=== PATIENT | female | born 1940 | race Caucasian/White ===

== ENCOUNTER 2022-01-01 09:18 | Outpatient (CLI) | payer MEDICARE, SELFPAY ==
--- NOTE | 2022-01-01 10:00 | CRLHL7_ITS ---
For Patients: As a result of the Century Cures Act, medical imaging exams and procedure reports are released immediately into your electronic medical record. You may view this report before your referring provider. If you have questions, please contact your health care provider. Indication: FOLLOW UP SPLENIC LACERATION Technique: Postcontrast CT abdomen and pelvis. 65 cc Isovue 370 intravenous contrast. Please note that all CT scans at this facility use dose modulation, iterative reconstruction, and/or weight-based dosing when appropriate to reduce radiation dose to as low as reasonably achievable. Comparison: November 03, 2021 Findings: There is now a left pleural effusion with compressive atelectasis involving the left lower lobe. Chronic scarring within the right lower lobe and right middle lobe. No basilar pneumothorax. A trace right pleural effusion is present. There is cardiomegaly without pericardial effusion. Vascular calcifications are present. There is no intrahepatic mass. Stable calcification associated with the dome of the liver. Adrenal glands are normal. Normal kidneys without hydronephrosis or perinephric stranding. Postprocedural changes of embolization noted. There is a subcapsular fluid collection about the lateral aspect of the spleen measuring 11.5 x 7.2 cm. This results in mass effect upon the splenic parenchyma. The pancreas is normal. Dense vascular calcifications in the aorta without aneurysm. No adenopathy. Bladder normal. Right inguinal hernia containing fat is again noted. Resolution of previously noted pelvic free fluid. Old left proximal femoral fracture deformity. Severe multilevel degenerative changes. Impression: Status post splenic artery embolization with development of a subcapsular fluid collection about the spleen measuring 11.5 cm. Resolution of previously noted free fluid. Development of left pleural effusion with compressive left lower lobe atelectasis. Trace right pleural effusion also present. Please note that all CT scans at this facility use dose modulation, iterative reconstruction, and/or weight-based dosing when appropriate to reduce radiation dose to as low as reasonably achievable. Dictated by George Schmitz MD @ 01/01/2022 11:32:59 AM (Electronically Signed)
[2022-01-01 10:02] LABS: Creatinine* 0.8 mg/dL (0.5-1.5); Estimated Glomerular Filt Rate 74 ml/min
== END 2022-01-01 09:19 | disposition home or self-care (01) ==
LOC: CT 09:18
PROVIDERS: PCP Physician Assistant Medical; Visit Provider Surgery
DX: S36.039A Unspecified laceration of spleen, initial encounter (principal); J90 Pleural effusion, not elsewhere classified
CPT/HCPCS: 36415; 74177; 82565; Q9967

== ENCOUNTER 2022-01-25 14:36 | Outpatient (CLI) | payer MEDICARE, SELFPAY ==
[2022-01-25 15:08] VITALS: BP 194/110; PULSE 78; RESP 16; O2SAT 97
[2022-01-25 15:27] VITALS: BP 167/90; PULSE 75; RESP 16; O2SAT 97
--- NOTE | 2022-01-25 15:30 | CRLHL7_ITS ---
For Patients: As a result of the Cures Act, medical imaging exams and procedure reports are released immediately into your electronic medical record. You may view this report before your referring provider. If you have questions, please contact your health care provider. INDICATION: Post thoracentesis. TECHNIQUE: Chest 1 views. COMPARISON: Chest x-ray from 02/05/2014. FINDINGS: Lungs: Clear lungs. No consolidation. Pleura: Small left pleural effusion. No pneumothorax. Heart and Mediastinum: The cardiomediastinal silhouette is obscured. The vessels are unremarkable. Bones: Unremarkable. IMPRESSION: Small left pleural effusion. No pneumothorax. Dictated by Jose Francisco Connors MD @ 01/25/2022 4:24:51 PM (Electronically Signed)
--- NOTE | 2022-01-25 15:33 | P.PCN_ITS ---
Procedure Note Date Seen: 01/25/22 Will [facility] bill your pro fee for this procedure?: Yes Pre-op diagnosis: Pleural effusion, left chest Post-op diagnosis: same Procedure: Thoracentesis, left chest Procedure Description: After discussion of the risks and benefits the patient was placed in a seated position leaning over a table. Ultrasound guidance was used to identify the effusion. Once this was done the site was marked. The area was prepped and draped in the usual sterile fashion. Local anesthetic was used to anesthetize the skin and subcutaneous tissue down to the rib. Once the rib was encountered, the needle was advanced over the top of the rib into the pleural space. This was confirmed by the aspiration of serous fluid. A skin sebastien was made with an 11 blade. The thoracentesis catheter was advanced into the pleural cavity while aspirating. Once the pleural fluid was aspirated confirming entrance into the chest cavity, the needle was removed and the sheath advanced. 700 mL of fluid were then aspirated. At the end of the procedure, the patient had some mild coughing. Specimens were sent for cytology. The ultrasound was used to confirm successful aspiration evidence by no further remaining fluid. The catheter was then removed, and an occlusive dressing was placed over the skin site. Patient tolerated the procedure well. Estimated blood loss 1 mL Postprocedure chest x-ray revealed no pneumothorax. Anesthesia: local Surgeon: Yudi Camarillo MD Estimated blood loss (mL): 1 Pathology: specimen obtained, sent to pathology Disposition: same day
[2022-01-25 18:24] LABS: BF Total Volume* 700
[2022-01-25 18:25] LABS: BF Clarity* Slightly Cloudy; BF Color Xanthochromic; pH Body Fluid* 8.5
[2022-01-25 18:44] LABS: Mononuclear WBC Body Fluid* 99 %; Polynuclear WBC Body Fluid* 1 %; RBC, Body Fluid* 0.003 10^6/uL; WBC, Body Fluid* 1.524 10^3/uL
[2022-01-25 18:52] LABS: Amylase Body Fluid* 33 U/L; Body Fluid Total Protein* 5.4 gm/dL; Cholesterol Body Fluid* 79 mg/dL; Glucose Body Fluid* 116 mg/dL
[2022-01-25 19:43] LABS: LDH Body Fluid* 521 U/L
== END 2022-01-25 16:10 | disposition home or self-care (01) ==
LOC: US 15:00 → OP CLINIC 15:02
PROVIDERS: Surgery; PCP Physician Assistant Medical; Visit Provider Surgery
DX: J90 Pleural effusion, not elsewhere classified (principal)
CPT/HCPCS: 32555; 71045; 76942; 82150; 82945; 83615; 83986; 84157; 84311; 87070; 87102; 87205; 88112; 88305; 89051

== ENCOUNTER 2022-03-08 12:42 | Outpatient (CLI) | payer MEDICARE, SELFPAY | END 2022-03-08 12:43 | disposition home or self-care (01) | LOC: RAD 12:43 | PROVIDERS: PCP Physician Assistant Medical; Visit Provider Internal Medicine | DX: I21.4 Non-ST elevation (NSTEMI) myocardial infarction (principal) | CPT/HCPCS: 93306 ==

== ENCOUNTER 2022-05-10 14:16 | Outpatient (CLI) | payer MEDICARE, SELFPAY ==
[2022-05-10 14:18] LABS: Chloride* 102 mmol/L (96-114)
[2022-05-10 14:19] LABS: Albumin* 4.6 g/dL (3.3-5.0); Potassium* 4.4 mmol/L (3.6-5.1); Sodium* 140 mmol/L (135-149)
[2022-05-10 14:22] LABS: Alanine Aminotransferase* 31 U/L (4-35); Alkaline Phosphatase* 84 U/L (40-150); Aspartate Amino Transferase* 34 U/L (12-35); Bilirubin Total* 0.4 mg/dL (0.1-1.5); Blood Urea Nitrogen* 17 mg/dL (7-30); Calcium* 9.4 mg/dL (8.4-10.6); Carbon Dioxide* 30 mmol/L (20-32); Creatinine* 0.8 mg/dL (0.5-1.5); Estimated Glomerular Filt Rate 73 ml/min; Glucose* 109 mg/dL (60-115)
== END 2022-05-10 14:17 | disposition home or self-care (01) ==
PROVIDERS: PCP Physician Assistant Medical; Visit Provider Physician Assistant Medical
DX: I10 Essential (primary) hypertension (principal); E78.5 Hyperlipidemia, unspecified
CPT/HCPCS: 80053

== ENCOUNTER 2022-05-26 12:44 | Outpatient (CLI) | payer MEDICARE, SELFPAY ==
--- NOTE | 2022-05-26 13:00 | CRLHL7_ITS ---
For Patients: As a result of the Century Cures Act, medical imaging exams and procedure reports are released immediately into your electronic medical record. You may view this report before your referring provider. If you have questions, please contact your health care provider. DXA BONE MINERAL DENSITY STUDY Current height (in): 65.0. Weight (lb): 136.0. Menopause age: 49. Ethnicity: White. Reason for exam: Screening. 1. Have you had a previous hip or vertebral fracture? Yes. 2. Have you had any fractures during your adult life which did not result from significant trauma (e.g., auto accident)? Yes. 3. Did either of your parents have a hip fracture? No. 4. Do you smoke? No. 5. Have you ever taken Glucocorticoids? No. 6. Do you have rheumatoid arthritis? Yes. 7. Do you have secondary osteoporosis? No. 8. Do you drink 3 or more alcoholic drinks per day? No. 9. Are you being treated for osteoporosis? No. 10. Have you ever taken any of the following medications: Actonel, Evista, Fosamax, Miacalcin, Reclast, Boniva, Forteo, HRT (i.e. estrogen/hormone therapy), Protelos, Prolia, Vitamin D, Calcium, other ??? please specify. ANSWER: Yes, Fosamax, calcium. 11. Do you have any of the following medical conditions: Anorexia or bulimia, asthma or emphysema, end stage renal disease, hyperparathyroidism, any seizure disorders, cancer, inflammatory bowel diseases, hysterectomy, other ??? please specify. ANSWER: No. 12. What was your maximum height (inches)? 66. 13. Do you perform weight bearing exercise regularly? Yes. 14. Do you regularly consume dairy products? Yes. 15. Do you drink caffeinated beverages? No. If female: 16. At what age did your period start? 13. 17. Are you premenopausal? No. 18. How many full term pregnancies have you had? 4. 19. Have you ever missed your period for more than 6 months in a row (not including or menopause)? No. TECHNIQUE: Bone mineral density study was performed using the [employer]. FINDINGS: The results of the study expressed as bone mineral density (BMD) are as follows: Lumbar spine L1 to L2: BMD: 1.190 g/cm2. T-score: 1.9. Z-score: 4.5. Neck Left: BMD: 0.748 g/cm2. T-score: -0.9. Z-score: 1.5. Right: BMD: 0.563 g/cm2. T-score: -2.6. Z-score: -0.1. Total Left: BMD: 0.770 g/cm2. T-score: -1.4. Z-score: 0.8. Right: BMD: 0.670 g/cm2. T-score: -2.2. Z-score: 0.0. IMPRESSION: Osteoporosis. COMPARISON: Compared with scan of 05/22/2020, the bone mineral density has increased by 10.0 percent at the spine and decreased by 1.9 percent at the hip. George Schmitz M.D. Diagnostic Radiologist [email or web address] Transcribed: 3:01 pm DW/Dictated by: George Schmitz MD @ 05/26/2022 1:56:00 PM (Electronically Signed)
== END 2022-05-26 12:45 | disposition home or self-care (01) ==
LOC: RAD 12:45
PROVIDERS: PCP Physician Assistant Medical; Visit Provider Physician Assistant Medical
DX: Z13.820 Encounter for screening for osteoporosis (principal); M81.0 Age-related osteoporosis without current pathological fracture; Z78.0 Asymptomatic menopausal state
CPT/HCPCS: 77080

== ENCOUNTER 2022-06-18 09:58 | Outpatient (CLI) | payer MEDICARE, SELFPAY ==
--- NOTE | 2022-06-18 10:15 | CRLHL7_ITS ---
For Patients: As a result of the Century Cures Act, medical imaging exams and procedure reports are released immediately into your electronic medical record. You may view this report before your referring provider. If you have questions, please contact your health care provider. BILATERAL SCREENING MAMMOGRAM WITH COMPUTER-AIDED DETECTION TECHNIQUE: CC and MLO views were obtained. These mammographic images have been obtained using full-field digital technique. These mammographic images were interpreted with the benefit of computer-aided detection. COMPARISON FILM: 05/26/21, 05/22/20, 05/14/19. FINDINGS: The breasts are heterogeneously dense, which may obscure small masses IMPRESSION: There is no radiographic evidence for malignancy. ASSESSMENT: BI-RADS Category 1: Negative RECOMMENDATION: Routine screening mammogram in 1 year. A lay language report of this examination will be provided to the patient. George Schmitz M.D. Diagnostic Radiologist [email or web address] / be/Dictated by: George Schmitz MD @ 06/18/2022 11:24:00 AM (Electronically Signed)
== END 2022-06-18 09:59 | disposition home or self-care (01) ==
LOC: MAMMO 09:59
PROVIDERS: PCP Physician Assistant Medical; Visit Provider Physician Assistant Medical
DX: Z12.31 Encounter for screening mammogram for malignant neoplasm of breast (principal); R92.2 Inconclusive mammogram
CPT/HCPCS: 77067

== ENCOUNTER 2023-01-17 06:20 | Day surgery (SDC) | payer MEDICARE, SELFPAY ==
[2023-01-17] VITALS (7 sets, daily range): BP systolic 131–158; BP diastolic 69–76; PULSE 61–68; RESP 14–16; TEMP 36.6–36.7; O2SAT 95–99; BMI 22.9
[2023-01-17] MEDS: BUPIVACAINE 0.5 %/EPI 1:200K INJECTION (07:10)
[2023-01-17] MEDS: ETHYL CHLORIDE 1 APPLICATION 1 APPLIC TOPICAL (07:10)
[2023-01-17] MEDS: LIDOCAINE 1 % PF 30 ML INJECTION (07:10)
--- NOTE | 2023-01-17 07:41 | P.ORPRC_ITS ---
Procedure Note Date of procedure: 01/17/23 Procedure: PREOPERATIVE DIAGNOSIS: 1. Right carpal tunnel syndrome POSTOPERATIVE DIAGNOSIS: 1. Right carpal tunnel syndrome PROCEDURE: 1. Right open carpal tunnel release SURGEON: Frantz Aquino MD. CENTRAL OFFICE TECHNICIAN: AWA Solomon ANESTHESIA: Local anesthetic (50:50 mixture of 1% lidocaine plain and 0.5% marcaine with epi) - 10ml total IMPLANTS: None EBL: 2 mL TOURNIQUET: None COMPLICATIONS: None evident INDICATIONS: The patient is a pleasant 82-year-old female who has experienced right hand numbess/tingling affecting the radial 3.5 digits for multiple months. It has progressively gotten worse. Nonoperative management has been tried and failed, and therefore surgery was recommended. DESCRIPTION OF PROCEDURE: Following a thorough discussion of risks, benefits, and alternatives consent was obtained and the operative extremity was marked. The patient was brought to the operating room and placed supine on the operating table. Local anesthesia induction was undertaken in preop holding. No antibiotics were administered as this was planned to be a local case only. Proper time-out was performed identifying proper patient, site, and procedure. The operative extremity was prepped and draped in the appropriate sterile fashion using ChloraPrep. An incision was made in line with the radial border of the ring finger beginning 1 cm distal to the distal wrist crease and progressing for another 2.5cm distal. Caution was taken to stay proximal to De Souza's cardinal line. Sharp incision through the skin, subcutaneous tissue, and palmar fascia was performed. The thenar musculature was bluntly elevated off the transverse carpal ligament. The ligament was directly visualized, and divided sharply with a 15 blade. This was released from its most proximal to the most distal extent. Metzenbaum scissor was also utilized to release the fascia extension proximally. We confirmed complete release of the transverse carpal ligament. Closure was performed with 4-O nylon in interrupted fashion. Soft dressings were applied, and the patient was transferred to the recovery room in stable condition. 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 Dissection through transverse carpal ligament identified the median nerve to be rest in more radial than is typical. We identified the nerve, view to through the extent of the carpal tunnel, and protected throughout the case. PLAN: 1. Encourage elevation of the operative extremity. 2. Range of motion of the fingers and hand/wrist as tolerated. 3. Ibuprofen/acetaminophen and/or Percocet as needed for pain control. 4. Follow up with PA visit or nurse visit in 12-16 days for wound check and suture removal.
[2023-01-17] MEDS: NEOMYCIN/BACITRACIN/POLYMYXIN B 1 APPLIC TOPICAL (07:47)
--- NOTE | 2023-01-17 07:52 | SUR.PREOP ---
SAME DAY SURGERY LOCAL INJECTION SITE VERIFICATION WAS PERFORMED BY SURGEON/PA AND PATIENT PRIOR TO LOCAL ANESTHETIC BEING INJECTED TO OPERATIVE SITE.
== END 2023-01-17 08:12 | disposition home or self-care (01) ==
PROVIDERS: PCP Physician Assistant Medical; Visit Provider Orthopaedic Surgery Sports Medicine
PROC: (CPT 64721; principal; 2023-01-17 07:30)
DX: G56.01 Carpal tunnel syndrome, right upper limb (principal)
CPT/HCPCS: 64721; J2001; J3490

== ENCOUNTER 2023-06-09 07:57 | Outpatient (CLI) | payer MEDICARE, SELFPAY | END 2023-06-09 07:58 | disposition home or self-care (01) | LOC: NFLDREF 06-10 08:12 | PROVIDERS: PCP Physician Assistant Medical; Referring Provider Physician Assistant Medical; Visit Provider Physician Assistant Medical | DX: Z00.00 Encounter for general adult medical examination without abnormal findings (principal); D64.9 Anemia, unspecified; E78.5 Hyperlipidemia, unspecified; E87.1 Hypo-osmolality and hyponatremia; I10 Essential (primary) hypertension | CPT/HCPCS: 80053; 80061; 84443 ==

== ENCOUNTER 2023-07-04 13:14 | Outpatient (CLI) | payer MEDICARE, SELFPAY ==
--- NOTE | 2023-07-04 13:40 | CRLHL7_ITS ---
For Patients: As a result of the Century Cures Act, medical imaging exams and procedure reports are released immediately into your electronic medical record. You may view this report before your referring provider. If you have questions, please contact your health care provider. BILATERAL SCREENING MAMMOGRAM WITH COMPUTER-AIDED DETECTION TECHNIQUE: CC and MLO views were obtained. These mammographic images have been obtained using full-field digital technique. These mammographic images were interpreted with the benefit of computer-aided detection. COMPARISON FILM: 06/18/22, 05/26/21, 05/22/20. FINDINGS: The breasts are heterogeneously dense, which may obscure small masses IMPRESSION: There is no radiographic evidence for malignancy. ASSESSMENT: BI-RADS Category 1: Negative RECOMMENDATION: Routine screening mammogram in 1 year. A lay language report of this examination will be provided to the patient. George Schmitz M.D. Diagnostic Radiologist [email or web address] / be/Dictated by: George Schmitz MD @ 07/05/2023 8:41:00 AM (Electronically Signed)
== END 2023-07-04 13:15 | disposition home or self-care (01) ==
LOC: MAMMO 13:14
PROVIDERS: PCP Physician Assistant Medical; Visit Provider Physician Assistant Medical
DX: Z12.31 Encounter for screening mammogram for malignant neoplasm of breast (principal); R92.2 Inconclusive mammogram
CPT/HCPCS: 77067

== ENCOUNTER 2024-06-15 09:11 | Outpatient (CLI) | payer MEDICARE, SELFPAY | END 2024-06-15 09:12 | disposition home or self-care (01) | LOC: NFLDREF 14:45 | PROVIDERS: PCP Physician Assistant Medical; Referring Provider Physician Assistant Medical; Visit Provider Physician Assistant Medical | DX: I10 Essential (primary) hypertension (principal); E78.2 Mixed hyperlipidemia; M85.80 Other specified disorders of bone density and structure, unspecified site; E55.9 Vitamin D deficiency, unspecified | CPT/HCPCS: 80053; 80061; 82306; 84443 ==

== ENCOUNTER 2024-07-05 13:16 | Outpatient (CLI) | payer MEDICARE, SELFPAY ==
--- NOTE | 2024-07-05 13:40 | CRLHL7_ITS ---
For Patients: As a result of the Century Cures Act, medical imaging exams and procedure reports are released immediately into your electronic medical record. You may view this report before your referring provider. If you have questions, please contact your health care provider. BILATERAL SCREENING MAMMOGRAM WITH COMPUTER-AIDED DETECTION AND TOMOSYNTHESIS TECHNIQUE: CC and MLO views were obtained. These mammographic images have been obtained using full-field digital technique. These mammographic images were interpreted with the benefit of computer-aided detection. Breast Tomosynthesis was used in this interpretation. COMPARISON FILM: 07/04/23, 06/18/22, 05/26/21. FINDINGS: There are scattered areas of fibroglandular density. IMPRESSION: There is no radiographic evidence for malignancy. ASSESSMENT: BI-RADS Category 1: Negative RECOMMENDATION: Routine screening mammogram in 1 year. A lay language report of this examination will be provided to the patient. George Schmitz M.D. Diagnostic Radiologist [email or web address] SP/Dictated by: George Schmitz MD @ 07/09/2024 9:48:00 AM (Electronically Signed)
--- NOTE | 2024-07-05 14:30 | CRLHL7_ITS ---
For Patients: As a result of the Century Cures Act, medical imaging exams and procedure reports are released immediately into your electronic medical record. You may view this report before your referring provider. If you have questions, please contact your health care provider. XR DXA Bone Mineral Density (BMD) Reason for exam: Osteoporosis. Current height (in): 65. Weight (lb): 136. Menopause age: 49. Ethnicity: White. 1. Have you had a previous hip or vertebral fracture? Yes. 2. Have you had any fractures during your adult life which did not result from significant trauma (e.g., auto accident)? Yes. 3. Did either of your parents have a hip fracture? No. 4. Do you smoke? No. 5. Have you ever taken Glucocorticoids? No. 6. Do you have rheumatoid arthritis? No. 7. Do you have secondary osteoporosis? Yes. 8. Do you drink 3 or more alcoholic drinks per day? No. 9. Are you being treated for osteoporosis? No. 10. Have you ever taken any of the following medications: Actonel, Evista, Fosamax, Miacalcin, Reclast, Boniva, Forteo, HRT (i.e., estrogen/hormone therapy), Protelos, Prolia, Vitamin D, Calcium, other ??? please specify. ANSWER: Yes, Fosamax (i.e., alendronate), vitamin D, and calcium. 11. Do you have any of the following medical conditions: Anorexia or bulimia, asthma or emphysema, end stage renal disease, hyperparathyroidism, any seizure disorders, cancer, inflammatory bowel diseases, hysterectomy, other ??? please specify. ANSWER: No. 12. What was your maximum height (inches)? 66. 13. Do you perform weight bearing exercise regularly? Yes. 14. Do you regularly consume dairy products? Yes. 15. Do you drink caffeinated beverages? Yes. 16. At what age did your period start? 12. 17. Are you premenopausal? No. 18. How many full-term pregnancies have you had? 4. 19. Have you ever missed your period for more than 6 months in a row (not including or menopause)? No. TECHNIQUE: Bone mineral density study was performed using the [employer]. FINDINGS: The results of the study expressed as bone mineral density (BMD) are as follows: Lumbar spine L1 to L2: BMD: 1.149 g/cm2. T-score: 1.5. Z-score: 4.2 Neck Left: BMD: 0.762 g/cm2. T-score: -0.8. Z-score: 1.7 Right: BMD: 0.584 g/cm2. T-score: -2.4. Z-score: 0.1 Total Left: BMD: 0.799 g/cm2. T-score: -1.2. Z-score: 1.2 Right: BMD: 0.709 g/cm2. T-score: -1.9. Z-score: 0.4 IMPRESSION: Osteopenia. *Comparison exams done prior to 11/2019 were performed on different unit, [employer]. COMPARISON: Compared with scan of 05/26/2022, the bone mineral density has decreased by 3.5 percent at the spine and increased by 4.7 percent at the hip. Compared with scan of 05/22/2020, the bone mineral density has increased by 10.0 percent at the spine and decreased by 1.9 percent at the hip. Magdalene Galarza M.D. Diagnostic/Breast Radiologist [email or web address] kidd/Dictated by: Magdalene Galarza MD @ 07/06/2024 10:47:00 AM (Electronically Signed)
== END 2024-07-05 13:17 | disposition home or self-care (01) ==
LOC: MAMMO 13:17
PROVIDERS: PCP Physician Assistant Medical; Visit Provider Physician Assistant Medical
DX: Z12.31 Encounter for screening mammogram for malignant neoplasm of breast (principal); M81.0 Age-related osteoporosis without current pathological fracture; M85.80 Other specified disorders of bone density and structure, unspecified site
CPT/HCPCS: 77063; 77067; 77080